=== PATIENT | female | born 1960 | race Caucasian/White ===

== ENCOUNTER 2019-12-27 04:22 | Inpatient (IN) | payer OTHER ==
[2019-12-25 13:18] VITALS: BMI 28.8
[2019-12-27] MEDS ORDERED: VANCOMYCIN 1,000 MG VIAL (RESTRICTED TO ID ONLY) ONE (07:21)
[2019-12-27] MEDS ORDERED: SODIUM CHLORIDE 0.9% P/F 10 ML VIAL IJ ONE (07:21)
[2019-12-27] MEDS ORDERED: ceFAZolin SODIUM 1 GM VIAL ONE ×3 (07:21→21:30)
[2019-12-27] MEDS ORDERED: TRANEXAMIC ACID 1000 MG/10 ML VIAL ONE ×2 (07:21→09:48)
[2019-12-27] MEDS ORDERED: MIDAZOLAM HCL 2 MG/2 ML SINGLE DOSE VIAL ONE ×2 (07:23)
[2019-12-27] MEDS ORDERED: ACETAMINOPHEN 1000 MG/100 ML VIAL (NON FORMULARY) IVPB ONE (07:28)
[2019-12-27] MEDS ORDERED: ONDANSETRON 4 MG/2 ML VIAL IVPUSH PRN ×2 (07:28→11:32)
[2019-12-27] MEDS ORDERED: oxyCODONE HCL 5 MG TABLET PO PRN (07:28)
[2019-12-27] MEDS ORDERED: traMADol HCL 50 MG TABLET PO PRN (07:28)
[2019-12-27] MEDS ORDERED: LIDOCAINE HCL/PF 1% SDV 5ML VIAL ONE (07:34)
[2019-12-27] MEDS ORDERED: ROPIVACAINE HCL 0.5% 30ML VIAL ONE (07:34)
[2019-12-27] MEDS ORDERED: EPHEDRINE SULFATE/0.9% NACL/PF 50 MG/10 ML SYRINGE NR ONE (09:10)
[2019-12-27] MEDS ORDERED: PROPOFOL 20 ML ONE ×2 (09:10)
[2019-12-27] MEDS ORDERED: ONDANSETRON 4 MG/2 ML VIAL ONE ×2 (09:59→15:45)
[2019-12-27] MEDS ORDERED: BENZOIN/ALOE VERA/STORAX/TOLU 58 ML BOTTLE ONE (10:24)
--- NOTE | 2019-12-27 11:22 | PN ---
Progress Note (short form) - Note Progress Note: 59F s/p RIGHT total hip replacement w/cable fixation of graciela-prosthetic calcar fracture POD #0. -Pain control: CANDY CUTTER MACHINE as per anesthesia team; NSAID's OK. -Ancef 2mg IV q6h post-op x 3 doses. -DVT PPx: -Chemical: ASA 81mg PO BID x 6 weeks. -Mechanical: VICKIE's, SCD's. -Incentive spirometry q15 min. -PT/OT/Rehab, OOB. -PWB RLE: 20lbs. -f/u TOV (8 hours max). -f/u AM labs. -f/u drain output. -Hip abduction pillow: straps loose, not tight. -RIGHT hip precautions. -Diet as tolerated. -Care per medical hospitalist team. -Discharge planning: home VS rehab; f/u [facility] [place] [facility] 7-10 days post-discharge; call for appointment . -Will follow. Dao Patel MD (Orthopaedic Surgery).
--- NOTE | 2019-12-27 11:25 | OP ---
Operative Note - Note: Operative Date: 12/27/19 Pre-Operative Diagnosis: Right hip DJD Operation: Right total hip replacement Findings: Intra-op calcar fracture fixed w/cable x 1 Implants: Gerson. Cup - Trident II-Triathlon, 52mm cluster. 1 x 25mm acetabular screw. Poly - 28mm, neutral. Stem - Accolade II, #4, 127 deg NSA, high offset. Head - 28mm diameter, +4mm length Biolox/Delta Ceramic Post-Operative Diagnosis: Same as Pre-op Surgeon: Dao Patel Publicity Director: Curtis Patel Anesthesiologist/SENIOR INFRASTRUCTURE ARCHITECT: Love Pang Anesthesia: Spinal Specimens Removed: Right femoral head Estimated Blood Loss (mls): 200 Drains & Tubes with Location: 1 x Deep HemoVac Fluid Volume Replaced (mls): 1,000 (Crystalloid) Operative Report Dictated: Yes
[2019-12-27] MEDS ORDERED: MAGNESIUM HYDROX 2400MG/30ML ORAL SUSPENSION 30 ML CUP PO PRN (11:32)
[2019-12-27] MEDS ORDERED: ALBUTEROL SO4 HFA INHALER IH PRN (11:32)
[2019-12-27] MEDS ORDERED: MAG HYDROX/AL HYDROX/SIMETH 30 ML UNIT-DOSE CUP PO PRN (11:32)
[2019-12-27] MEDS ORDERED: LACTATED RINGERS SOLUTION 1,000 ML IV SCH (11:45)
[2019-12-27] MEDS ORDERED: ACETAMINOPHEN INJECTION 100 ML IVPB ONE (11:52)
--- NOTE | 2019-12-27 13:14 | OP ---
DATE OF OPERATION: 12/27/2019 SURGEON: Dao Patel MD WELFARE CENTRE MANAGER: Curtis Patel MD PREOPERATIVE DIAGNOSIS: Osteoarthritis, right hip. POSTOPERATIVE DIAGNOSIS: Osteoarthritis, right hip. OPERATIVE PERFORMED: Right cementless total hip arthroplasty (Gerson). (33204) ANESTHESIA: Conscious sedation with spinal anesthesia. ANTIBIOTICS GIVEN: Ancef 2 g, 1 g vancomycin preop, 1 g Ancef at the time of seating of the femoral component. OPERATION DETAILS: Patient correctly identified, brought to the operating room. Right lower extremity was prepped, free draped in a routine manner with Betadine scrub solution, wiped off with alcohol, DuraPrep applied. Timeout was called. Imaging was available for intraoperative evaluation. With the hip and knee flexed at 45 degrees, incision was made centered over the greater trochanter. The dissection was taken through the skin and subcutaneous tissue to the fascia. Fascia opened, Charnley retractors were placed in the subfascial planes to provide excellent exposure of the hip abductor mechanism. The trochanteric ridge clearly identified. The incision into the gluteus medius, which was anterior biased direct lateral approach, enabled easy access to the femoral neck. The incision into the femoral neck was from the superolateral aspect of the acetabulum to the inferomedial aspect of the acetabulum. Radial incision was made into the neck, and the hip was flexed, externally rotated, and dislocated with no difficulty. Severe osteoarthritic changes noted to the femoral head as well as the acetabulum. The acetabulum was exposed with anterior, posterior, inferior retractor. The superior shard of muscle was held out of harm's way with 1 Charnley pin. The labrum was resected. The posterior capsule was left intact. Reaming was to size 52, and a size 52 titanium cup inserted. Because of the osteoporotic bone, I elected to seat 1 screw for additional fixation, albeit press-fit fixation was solid and excellent. The augmentation of the fixation with the screw gave me peace of mind that there will be no rotation of this cup. A 28-mm polyethylene liner inserted for the articulation. Once this had been completed, hip was flexed and externally rotated. The hip abductor was held out of harm's way with a sharp Hohmann. A box cut was made into the trochanteric area. A terry cloth cutter hand was inserted into the femoral canal and a powered lateralizer utilized to open up the lateral part of the greater trochanter for the stem. Broaching was to size 4 for an Accolade stem. The femoral broaching was so that the neck was about 3-5 degrees anteverted. This would to the cup which was seated at 10 degrees of anteversion and 40 degrees of inclination. Broaching to size 4, unfortunately because of the osteoporotic bone a small crack occurred on top of the calcar. This was exposed extensively to see where the end of the crack was. This measured about 2 cm. A cable was applied around the proximal end of the femur. This was a delicious cable and tightened appropriately. Sequential broaching was performed again on the right up to size 4. The time of the crack of the femur was when the broaching was at size 3. A size 4 Accolade stem applied. It was inserted. It was a high-offset 127-degree femoral neck, and a +4 ceramic head gave equal leg length on the table. Flexion, adduction, internal rotation, extension, external rotation were completely safe, and no subluxation noted. The wounds and tissues were then thoroughly lavaged with saline. The closure was as follows: Hip abductor mechanism with 1 No. 1 Vicryl, fascia 1 Vicryl, subcutaneous 1 and 2-0 Vicryl, skin 3-0 Monocryl, Steri-Strips. Drainage 1/8-inch Hemovac x1. A hip abduction pillow utilized. MD LEENA Beatty/[id number] MTDD
[2019-12-27] MEDS ORDERED: oxyCODONE HCL 5 MG TABLET ONE (13:39)
[2019-12-27] MEDS ORDERED: oxyCODONE HCL 5 MG TABLET PO ONE (13:42)
[2019-12-27] MEDS ORDERED: traMADol HCL 50 MG TABLET ONE (15:18)
[2019-12-27] MEDS ORDERED: HYDROmorphone HCL CARPU-JECT 2 MG/1 ML DISP.SYRIN IVPUSH ONE (15:30)
[2019-12-27] MEDS ORDERED: ceFAZolin SODIUM 1 GM VIAL IVPB ONE (15:44)
[2019-12-27] MEDS ORDERED: PROMETHAZINE HCL 25 MG/1 ML VIAL IVPB ONE (16:15)
[2019-12-27] MEDS ORDERED: PROMETHAZINE HCL 25 MG/1 ML VIAL ONE (16:16)
[2019-12-27] MEDS: CEFAZOLIN 1 GM in DEXTROSE 5%-WATER - 50 ML IVPB SCH ×2 (17:23→21:34)
[2019-12-27] MEDS: LACTATED RINGERS SOLUTION 1,000 ML IV SCH (17:24)
[2019-12-27] MEDS: oxyCODONE HCL 5 MG TABLET PO PRN (19:49)
[2019-12-27] MEDS: ACETAMINOPHEN 325 MG TABLET (FP) PO SCH ×2 (19:50→19:54)
[2019-12-27] MEDS ORDERED: DEXTROSE 5%-WATER - 50 ML IVPB ONE (21:30)
[2019-12-27] MEDS: ASPIRIN 325 MG TABLET PO SCH (21:34)
[2019-12-27] MEDS: SENNOSIDES/DOCUSATE COMBO (SENNA PLUS) TABLET (UD) PO SCH (21:35)
[2019-12-27] MEDS: oxyCODONE HCL 10 MG SUSTAINED ACTING TABLET PO SCH (21:36)
[2019-12-28] MEDS: oxyCODONE HCL 5 MG TABLET PO PRN ×4 (00:17→14:47)
[2019-12-28] MEDS: ACETAMINOPHEN 325 MG TABLET (FP) PO SCH ×5 (02:15→22:13)
[2019-12-28] MEDS ORDERED: ceFAZolin SODIUM 1 GM VIAL ONE (03:18)
[2019-12-28] MEDS ORDERED: DEXTROSE 5%-WATER - 50 ML IVPB ONE (03:18)
[2019-12-28] MEDS: CEFAZOLIN 1 GM in DEXTROSE 5%-WATER - 50 ML IVPB SCH (03:35)
[2019-12-28 08:18] LABS: HEMATOCRIT 33.2 % (32.4-45.2); HEMOGLOBIN 10.8 GM/dL (10.7-15.3); MCH 28.8 pg (25.7-33.7); MCHC 32.5 g/dl (32.0-36.0); MEAN CELL VOLUME 88.7 fl (80-96); MEAN PLT VOLUME 8.6 fl (7.5-11.1); PLATELET COUNT 241 K/MM3 (134-434); RBC 3.74 M/mm3 (3.60-5.2); RDW 13.9 % (11.6-15.6); WHITE BLOOD COUNT 10.1 K/mm3 (4.0-10.0)
[2019-12-28 08:42] LABS: CALCIUM 8.5 mg/dL (8.5-10.1); CREATININE 0.7 mg/dL (0.55-1.3); POTASSIUM 4.3 mmol/L (3.5-5.1)
--- NOTE | 2019-12-28 09:13 | HP ---
CHIEF COMPLAINT: s/p Total R Hip Replacement PCP: HISTORY OF PRESENT ILLNESS: This is a 59 year old female with PMH of arthritis, who was admitted for elective R hip replacement for arthritis of the hip. She states that she has had arthritis in hip joints B/L for several years, worse on the right. She has been managing pain with Tylenol and Meloxicam at home, the efficacy of which has been gradually declining, which is why total hip replacement was recommended. She is now POD#1 total hip replacement w/cable fixation of graciela-prosthetic calcar fracture POD #0, without complications. She had oatmeal for breakfast this morning, has passed gas, but has not had any BMs. Endorses some nausea yesterday, but no fevers, chills, vomiting, diarrhea, SOB, chest pain, AMS. States pain has been somewhat under control. 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 Smoking: denies Alcohol: denies Drugs: denies Allergies No Known Allergies Allergy (Verified 12/25/19 13:12) HOME MEDICATIONS: Home Medications Medication Instructions Recorded Acetaminophen [Tylenol Arthritis] 1 tab PO PRN PRN 12/12/19 Albuterol Sulfate Inhaler - 1 puff IH PRN PRN 12/12/19 [Ventolin Hfa Inhaler -] REVIEW OF SYSTEMS CONSTITUTIONAL: Absent: fever, chills, diaphoresis, generalized weakness, malaise, loss of appetite, weight change HEENT: Absent: rhinorrhea, nasal congestion, throat pain, throat swelling, difficulty swallowing, mouth swelling, ear pain, eye pain, visual changes CARDIOVASCULAR: Absent: chest pain, syncope, palpitations, irregular heart rate, lightheadedness, peripheral edema RESPIRATORY: Absent: cough, shortness of breath, dyspnea with exertion, orthopnea, wheezing, stridor, hemoptysis GASTROINTESTINAL: Absent: abdominal pain, abdominal distension, nausea, vomiting, diarrhea, constipation, melena, hematochezia GENITOURINARY: Absent: dysuria, frequency, urgency, hesitancy, hematuria, flank pain, genital pain MUSCULOSKELETAL: Absent: myalgia, arthralgia, joint swelling, back pain, neck pain SKIN: Absent: rash, itching, pallor HEMATOLOGIC/IMMUNOLOGIC: Absent: easy bleeding, easy bruising, lymphadenopathy, frequent infections ENDOCRINE: Absent: unexplained weight gain, unexplained weight loss, heat intolerance, cold intolerance NEUROLOGIC: Absent: headache, focal weakness or paresthesias, dizziness, unsteady gait, seizure, mental status changes, bladder or bowel incontinence PSYCHIATRIC: Absent: anxiety, depression, suicidal or homicidal ideation, hallucinations. PHYSICAL EXAMINATION Vital Signs - 24 hr 12/27/19 12/27/19 12/27/19 11:10 11:15 11:20 Temperature 97.6 F Pulse Rate 54 L 50 L 67 Respiratory 14 14 14 Rate Blood Pressure 106/64 118/69 115/67 O2 Sat by Pulse 95 100 100 Oximetry (%) 12/27/19 12/27/19 12/27/19 11:25 11:40 11:55 Temperature Pulse Rate 50 L 50 L 51 L Respiratory 13 12 11 Rate Blood Pressure 113/67 120/65 111/68 O2 Sat by Pulse 100 100 100 Oximetry (%) 12/27/19 12/27/19 12/27/19 12:10 12:25 12:40 Temperature Pulse Rate 52 L 49 L 52 L Respiratory 13 11 11 Rate Blood Pressure 109/59 L 111/61 112/63 O2 Sat by Pulse 100 100 100 Oximetry (%) 12/27/19 12/27/19 12/27/19 12:55 13:00 13:30 Temperature Pulse Rate 52 L 53 L 63 Respiratory 11 14 20 Rate Blood Pressure 111/59 L 111/62 107/67 O2 Sat by Pulse 100 100 100 Oximetry (%) 12/27/19 12/27/19 12/27/19 14:00 14:30 14:45 Temperature Pulse Rate 57 L 56 L 60 Respiratory 15 14 16 Rate Blood Pressure 107/67 106/62 105/62 O2 Sat by Pulse 100 100 100 Oximetry (%) 12/27/19 12/27/19 12/27/19 15:00 15:30 16:00 Temperature Pulse Rate 58 L 60 58 L Respiratory 16 16 16 Rate Blood Pressure 130/70 130/74 128/72 O2 Sat by Pulse 100 100 100 Oximetry (%) 12/27/19 12/27/19 12/27/19 16:30 16:45 17:31 Temperature 98.2 F 98 F Pulse Rate 58 L 64 60 Respiratory 16 16 18 Rate Blood Pressure 138/72 120/72 156/74 O2 Sat by Pulse 100 100 100 Oximetry (%) 12/27/19 12/27/19 12/27/19 19:45 21:00 23:12 Temperature Pulse Rate 66 Respiratory 20 Rate Blood Pressure 119/71 118/70 O2 Sat by Pulse 100 100 Oximetry (%) 12/28/19 12/28/19 02:47 06:00 Temperature 99.2 F 99.4 F Pulse Rate 67 63 Respiratory 18 18 Rate Blood Pressure 102/57 L 113/56 L O2 Sat by Pulse 98 99 Oximetry (%) GENERAL: Awake, alert, and fully oriented, in no acute distress. HEAD: Normal with no signs of trauma. EYES: Pupils equal, round and reactive to light, extraocular movements intact, sclera anicteric, conjunctiva clear. No lid lag. EARS, NOSE, THROAT: Ears normal, nares patent, oropharynx clear without exudates. Moist mucous membranes. NECK: Normal range of motion, supple without lymphadenopathy, JVD, or masses. LUNGS: Breath sounds equal, clear to auscultation bilaterally. No wheezes, and no crackles. No accessory muscle use. HEART: Regular rate and rhythm, normal S1 and S2 without murmur, rub or gallop. ABDOMEN: Soft, nontender, not distended, normoactive bowel sounds, no guarding, no rebound, no masses. No hepatomegaly or splenomegaly. MUSCULOSKELETAL: Normal range of motion at all joints. No bony deformities or tenderness. No CVA tenderness. UPPER EXTREMITIES: 2+ pulses, warm, well-perfused. No cyanosis. No clubbing. No peripheral edema. LOWER EXTREMITIES: Brace in place, drain with no output neurovascular system intact NEUROLOGICAL: Cranial nerves II-XII intact. Normal speech. PSYCHIATRIC: Cooperative. Good eye contact. Appropriate mood and affect. SKIN: Warm, dry, normal turgor, no rashes or lesions noted, normal capillary refill. Laboratory Results - last 24 hr 12/28/19 12/28/19 07:05 07:05 WBC 10.1 H RBC 3.74 Hgb 10.8 Hct 33.2 MCV 88.7 MCH 28.8 MCHC 32.5 RDW 13.9 Plt Count 241 MPV 8.6 Sodium 139 Potassium 4.3 Chloride 104 Carbon Dioxide 30 Anion Gap 6 L BUN 11.0 Creatinine 0.7 Est GFR (CKD-EPI)AfAm 109.91 Est GFR (CKD-EPI)NonAf 94.84 Random Glucose 117 H Calcium 8.5 ASSESSMENT/PLAN: 59F s/p RIGHT total hip replacement w/cable fixation of graciela-prosthetic calcar fracture POD #0. 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 - PT twice daily, PWB RLE: 20lbs. - F/U TOV (8 hours max). - F/Udrain output. - Hip abduction pillow: straps loose, not tight, RIGHT hip precautions. #FEN: - Currently receiving LR, if tolerating diet will D/C after this bag - Regular diet, as tolerated #Prophylaxis - Chemical: ASA 81mg PO BID x 6 weeks. - Mechanical: VICKIE's, SCD's. #Dispo - Monitor in M/S for now Visit type - Emergency Visit Emergency Visit: No - New Patient This patient is new to me today: No - Critical Care Critical Care patient: No ATTENDING PHYSICIAN STATEMENT I saw and evaluated the patient. I reviewed the resident's note and discussed the case with the resident. I agree with the resident's findings and plan as documented. SUBJECTIVE: OBJECTIVE: ASSESSMENT AND PLAN:
[2019-12-28] MEDS: SENNOSIDES/DOCUSATE COMBO (SENNA PLUS) TABLET (UD) PO SCH ×2 (10:46→22:14)
[2019-12-28] MEDS: PANTOPRAZOLE 40 MG TABLET PO SCH (10:46)
[2019-12-28] MEDS: oxyCODONE HCL 10 MG SUSTAINED ACTING TABLET PO SCH ×2 (10:46→22:12)
[2019-12-28] MEDS ORDERED: ASPIRIN 325 MG ENTERIC COATED TABLET (FP) PO SCH (10:49)
[2019-12-28] MEDS ORDERED: ASPIRIN COATED 81 MG TABLET.EC PO SCH (10:50)
[2019-12-28] MEDS ORDERED: HYDROmorphone HCl 2 MG/ML VIAL IVPB PRN (10:57)
--- NOTE | 2019-12-28 11:01 | PN ---
Progress Note, Physician Chief Complaint: s/p ANAI under spinal anesthesia History of Present Illness: post op day one, paravertebral block for post op pain control - Current Medication List Current Medications: Active Medications Acetaminophen (Tylenol -) 650 mg PO Q6H [facility] Stop: 12/30/19 07:29 Last Admin: 12/28/19 10:51 Dose: Not Given Documented by: Al Hydroxide/Mg Hydroxide (Mylanta Oral Suspension -) 30 ml PO Q4H PRN PRN Reason: DYSPEPSIA Albuterol Sulfate (Ventolin Hfa Inhaler -) 1 puff IH Q6H PRN PRN Reason: SHORTNESS OF BREATH Aspirin (Ecotrin -) 81 mg PO BID [facility] Fentanyl (Sublimaze Injection -) 25 mcg IVPUSH [id number] PRN PRN Reason: PAIN-PACU ORDER X 4 DOSES ONLY Last Admin: 12/27/19 12:47 Dose: 50 mcg Documented by: Fentanyl (Sublimaze Injection -) 50 mcg IVPUSH [id number] PRN PRN Reason: PAIN-PACU ORDER X 4 DOSES ONLY Last Admin: 12/27/19 14:30 Dose: 50 mcg Documented by: Hydromorphone HCl (Dilaudid Injection -) 2 mg IVPB Q4H PRN PRN Reason: PAIN LEVEL 6-10 Lactated Ringer's (Lactated Ringers Solution) 1,000 mls @ 75 mls/hr IV ASDIR [facility] Last Admin: 12/27/19 17:24 Dose: 75 mls/hr Documented by: Magnesium Hydroxide (Milk Of Magnesia -) 30 ml PO PRN PRN PRN Reason: CONSTIPATION Ondansetron HCl (Zofran Injection) 4 mg IVPUSH Q6H PRN PRN Reason: NAUSEA AND/OR VOMITING Oxycodone HCl (Roxicodone -) 5 mg PO Q3H PRN PRN Reason: PAIN LEVEL 4 - 6 Oxycodone HCl (Roxicodone -) 10 mg PO Q3H PRN PRN Reason: PAIN LEVEL 7 - 10 Last Admin: 12/28/19 08:24 Dose: 10 mg Documented by: Oxycodone HCl (Oxycontin -) 10 mg PO BID [facility] Stop: 12/30/19 07:29 Last Admin: 12/28/19 10:46 Dose: 10 mg Documented by: Pantoprazole Sodium (Protonix -) 40 mg PO DAILY [facility] Last Admin: 12/28/19 10:46 Dose: 40 mg Documented by: Senna/Docusate Sodium (Pericolace -) 2 tablet PO BID [facility] Last Admin: 12/28/19 10:46 Dose: 2 tablet Documented by: Tramadol HCl (Ultram -) 50 mg PO Q3H PRN PRN Reason: PAIN LEVEL 1 - 3 Last Admin: 12/27/19 23:05 Dose: 50 mg Documented by: - Objective Vital Signs: Vital Signs Temperature 99.4 F 12/28/19 06:00 Pulse Rate 63 12/28/19 06:00 Respiratory Rate 18 12/28/19 06:00 Blood Pressure 113/56 L 12/28/19 06:00 O2 Sat by Pulse Oximetry (%) 99 12/28/19 06:00 Constitutional: Yes: Well Nourished, Moderate Distress Cardiovascular: Yes: WNL Respiratory: Yes: WNL Gastrointestinal: Yes: WNL Labs: CBC, BMP 12/28/19 07:05 12/28/19 07:05 Assessment/Plan Patient complaining of pain and inadequate pain control despite getting all pain medication ordered. will add dilaudid 2mg IVPB Q4H prn for breakthrough pain. no adverse anesthetic complications, dept of anesthesiology will sign off care at this time, reconsult if pain control is an issue.
[2019-12-28] MEDS: ASPIRIN COATED 81 MG TABLET.EC PO SCH ×2 (11:06→22:14)
[2019-12-28] MEDS: ASPIRIN 325 MG TABLET PO SCH (11:09)
--- NOTE | 2019-12-28 11:11 | PN ---
Teaching Attending Note Name of Resident: Evaristo Taylor ATTENDING PHYSICIAN STATEMENT I saw and evaluated the patient. I reviewed the resident's note and discussed the case with the resident. I agree with the resident's findings and plan as documented. SUBJECTIVE: 59 year old female with known history of arthritis, who was admitted for electi ve R hip replacement. She is now POD#1 total hip replacement with cable fixation of graciela-prosthetic calcar fracture POD #0, without complications. She reports pain at the surgical site. She was able to pass gas. Her appetite is not yet back to normal but she was able to eat a bit of breakfast. OBJECTIVE: Gen: appears appropriate for stated age and not in acute distress HEENT: EOMI, no oral lesions, pupils reactive to light CVS: RRR chest: clear to auscultation, no rales, ronchi nor wheezing abd: soft, nontender, nondistended, +BS ext: no edema, feet are warm and dry. 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 POD#1 sp R hip replacement - cont incentive spirometer regularly - cont with standing and prn pain medications - repeat labs in am 2. BM prophylaxis- colace 3. DVT prophylaxis - ASA Bid x 6 weeks as per ortho
[2019-12-28] MEDS: LACTATED RINGERS SOLUTION 1,000 ML IV SCH (14:15)
--- NOTE | 2019-12-28 14:47 | PN ---
Progress Note (short form) - Note Progress Note: POD __1__, s/p ____RT THA____ Pt seen and examined. Doing well post op. Pain well controlled. Has been oob ambulating with PT. Passing flatus. Tolerating diet. Voiding without issue. Denies cp/sob, n/v/d. GEN: A&0x3, NAD CV: Lungs: CTA b/l ABD: soft, non-distended, non-tender. Right hip: hemovac in place with ____63ml serosanguinous drainage in reservoir. Surgical dressing c/d/i. Compartments soft, no calf tenderness or swelling noted b/l. TEDs/SCDS in place b/l. /5 dorsi/plantar flexion b/l, / EHl/FHL b/l, SILT b/l les. Assessment/Plan: _59___y/o F/M with history of __Rt hip__ OA now POD ___1__ s/p Rt ANAI. Pt doing well post-operatively. Afebrile, VSS. Pain controlled. -Pain control as ordered -DVT PPx: Chemical: ASA 81 mg po BID x 6 weeks, Mechanical: VICKIE's, SCD's -Incentive Spirometry -PT/OT/Rehab, OOB -WBAT RLE -Keep drain in place, monitor I&Os -f/u am labs -Home meds ordered as appropriate -Care per medical hospitalist team.
[2019-12-28 20:43] LABS: URINE APPEARANCE CLEAR; URINE BILIRUBIN NEGATIVE (NEGATIVE); URINE COLOR YELLOW; URINE GLUCOSE (UA) NEGATIVE (NEGATIVE); URINE KETONE NEGATIVE (NEGATIVE); URINE LEUK ESTERASE TRACE (NEGATIVE); URINE NITRITE NEGATIVE (NEGATIVE); URINE PROTEIN NEGATIVE (NEGATIVE); URINE UROBILINOGEN 0.2 mg/dL (0.2-1.0)
[2019-12-29] MEDS: ACETAMINOPHEN 325 MG TABLET (FP) PO SCH ×5 (02:53→19:26)
[2019-12-29 07:42] LABS: BASO % 0.2 % (0-2.0); EOS % 0.5 % (0-4.5); HEMATOCRIT 32.6 % (32.4-45.2); HEMOGLOBIN 10.5 GM/dL (10.7-15.3); MCH 28.8 pg (25.7-33.7); MCHC 32.4 g/dl (32.0-36.0); MEAN PLT VOLUME 8.7 fl (7.5-11.1); NEUT % 78.3 % (42.8-82.8); PLATELET COUNT 250 K/MM3 (134-434); RBC 3.66 M/mm3 (3.60-5.2); RDW 14.1 % (11.6-15.6); WHITE BLOOD COUNT 12.1 K/mm3 (4.0-10.0)
[2019-12-29 08:01] LABS: ALBUMIN 2.8 g/dl (3.4-5.0); BILIRUBIN,TOTAL 0.4 mg/dL (0.2-1); BLOOD UREA NITROGEN 9.2 mg/dL (7-18); CALCIUM 8.6 mg/dL (8.5-10.1); CREATININE 0.7 mg/dL (0.55-1.3); MAGNESIUM 2.3 mg/dL (1.8-2.4); PHOSPHOROUS 2.5 mg/dL (2.5-4.9); POTASSIUM 3.9 mmol/L (3.5-5.1); TOT PROT 5.8 g/dl (6.4-8.2)
--- NOTE | 2019-12-29 08:42 | PN ---
Progress Note (short form) - Note Progress Note: POD __2__, s/p ____RT THA____ Pt seen and examined. Doing well post op. Pain well controlled. Has been oob ambulating with PT. Passing flatus. Tolerating diet. Voiding without issue. Denies cp/sob, n/v/d. Pt was unable to walk with PT yesterday. Pt is adament about going home and no Rehab, emphasized pt needs to work hard with PT today. GEN: A&0x3, NAD Lungs: CTA b/l ABD: soft, non-distended, non-tender. Right hip: hemovac in place with ____30ml serosanguinous drainage in reservoir. Surgical dressing c/d/i. Compartments soft, no calf tenderness or swelling noted b/l. TEDs/SCDS in place b/l. 5/5 dorsi/plantar flexion b/l, 5/5 EHl/FHL b/l, SILT b/l les. Assessment/Plan: _59___y/o F with history of __Rt hip__ OA now POD ___2__ s/p Rt ANAI. Pt doing well post-operatively. Will plan for discharge home with PT, if able to walk with them either later afternoon or tomorrow am. Will plan to pull drain later today after PT. Afebrile, VSS. Pain controlled. -Pain control as ordered -DVT PPx: Chemical: ASA 81 mg po BID x 6 weeks, Mechanical: VICKIE's, SCD's -Incentive Spirometry -PT/OT/Rehab, OOB -WBAT RLE -Keep drain in place, monitor I&Os -f/u am labs -Home meds ordered as appropriate -Care per medical hospitalist team.
[2019-12-29] MEDS: PANTOPRAZOLE 40 MG TABLET PO SCH ×2 (08:54→09:55)
[2019-12-29] MEDS: oxyCODONE HCL 5 MG TABLET PO PRN ×4 (08:54→19:27)
[2019-12-29] MEDS ORDERED: PT OWN MED DRAWER 7, Y5N ONE (09:37)
[2019-12-29] MEDS: ASPIRIN COATED 81 MG TABLET.EC PO SCH ×2 (09:55→21:39)
[2019-12-29] MEDS: SENNOSIDES/DOCUSATE COMBO (SENNA PLUS) TABLET (UD) PO SCH ×2 (09:55→21:39)
--- NOTE | 2019-12-29 11:32 | PN ---
Teaching Attending Note Name of Resident: Sofia Montanez ATTENDING PHYSICIAN STATEMENT I saw and evaluated the patient. I reviewed the resident's note and discussed the case with the resident. I agree with the resident's findings and plan as documented. SUBJECTIVE: patient seen and examined, feeling improvement OBJECTIVE: Last Vital Signs Temp Pulse Resp BP Pulse Ox 98.8 F 76 18 128/67 98 12/29/19 05:00 12/29/19 05:00 12/29/19 05:00 12/29/19 05:00 12/29/19 05:00 Gen: AAOx3, not in acute distress HEENT: EOMI, no oral lesions, pupils reactive to light CVS: S1S2 normal, no murmurs, non tachy Lungs: clear to auscultation, no rales, ronchi nor wheezing abdoemn: soft, nontender, nondistended, +BS ext: no edema, feet are warm and dry. Surgical dressing at the right lateral proximal thigh, drain in place, no tenderness TMH TEACHER: no motor deficit CBCD WBC 12.1 K/mm3 (4.0-10.0) H 12/29/19 06:53 RBC 3.66 M/mm3 (3.60-5.2) 12/29/19 06:53 Hgb 10.5 GM/dL (10.7-15.3) L 12/29/19 06:53 Hct 32.6 % (32.4-45.2) 12/29/19 06:53 MCV 89.0 fl (80-96) 12/29/19 06:53 MCHC 32.4 g/dl (32.0-36.0) 12/29/19 06:53 RDW 14.1 % (11.6-15.6) 12/29/19 06:53 Plt Count 250 K/MM3 (134-434) 12/29/19 06:53 MPV 8.7 fl (7.5-11.1) 12/29/19 06:53 CMP Sodium 140 mmol/L (136-145) 12/29/19 06:53 Potassium 3.9 mmol/L (3.5-5.1) 12/29/19 06:53 Chloride 106 mmol/L (98-107) 12/29/19 06:53 Carbon Dioxide 26 mmol/L (21-32) 12/29/19 06:53 Anion Gap 9 MMOL/L (8-16) 12/29/19 06:53 BUN 9.2 mg/dL (7-18) 12/29/19 06:53 Creatinine 0.7 mg/dL (0.55-1.3) 12/29/19 06:53 Random Glucose 94 mg/dL (74-106) 12/29/19 06:53 Calcium 8.6 mg/dL (8.5-10.1) 12/29/19 06:53 Total Bilirubin 0.4 mg/dL (0.2-1) 12/29/19 06:53 AST 21 U/L (15-37) 12/29/19 06:53 ALT 17 U/L (13-61) 12/29/19 06:53 Alkaline Phosphatase 86 U/L (45-117) 12/29/19 06:53 Total Protein 5.8 g/dl (6.4-8.2) L 12/29/19 06:53 Albumin 2.8 g/dl (3.4-5.0) L 12/29/19 06:53 Active Medications Acetaminophen (Tylenol -) 650 mg PO Q6H [facility] Stop: 12/30/19 07:29 Last Admin: 12/29/19 06:31 Dose: 650 mg Documented by: Al Hydroxide/Mg Hydroxide (Mylanta Oral Suspension -) 30 ml PO Q4H PRN PRN Reason: DYSPEPSIA Albuterol Sulfate (Ventolin Hfa Inhaler -) 1 puff IH Q6H PRN PRN Reason: SHORTNESS OF BREATH Aspirin (Ecotrin -) 81 mg PO BID [facility] Last Admin: 12/29/19 09:55 Dose: 81 mg Documented by: Fentanyl (Sublimaze Injection -) 25 mcg IVPUSH [id number] PRN PRN Reason: PAIN-PACU ORDER X 4 DOSES ONLY Last Admin: 12/27/19 12:47 Dose: 50 mcg Documented by: Fentanyl (Sublimaze Injection -) 50 mcg IVPUSH [id number] PRN PRN Reason: PAIN-PACU ORDER X 4 DOSES ONLY Last Admin: 12/27/19 14:30 Dose: 50 mcg Documented by: Hydromorphone HCl (Dilaudid Vial -) 2 mg IVPB Q4H PRN PRN Reason: PAIN LEVEL 1-3 Magnesium Hydroxide (Milk Of Magnesia -) 30 ml PO PRN PRN PRN Reason: CONSTIPATION Ondansetron HCl (Zofran Injection) 4 mg IVPUSH Q6H PRN PRN Reason: NAUSEA AND/OR VOMITING Oxycodone HCl (Roxicodone -) 5 mg PO Q3H PRN PRN Reason: PAIN LEVEL 4 - 6 Oxycodone HCl (Roxicodone -) 10 mg PO Q3H PRN PRN Reason: PAIN LEVEL 7 - 10 Last Admin: 12/29/19 08:54 Dose: 10 mg Documented by: Oxycodone HCl (Oxycontin -) 10 mg PO BID [facility] Stop: 12/30/19 07:29 Last Admin: 12/28/19 22:12 Dose: 10 mg Documented by: Pantoprazole Sodium (Protonix -) 40 mg PO DAILY [facility] Last Admin: 12/29/19 09:55 Dose: Not Given Documented by: Senna/Docusate Sodium (Pericolace -) 2 tablet PO BID [facility] Last Admin: 12/29/19 09:55 Dose: 2 tablet Documented by: Tramadol HCl (Ultram -) 50 mg PO Q3H PRN PRN Reason: PAIN 1 - 3; IF DILAUDID NT WRK Last Admin: 12/27/19 23:05 Dose: 50 mg Documented by: ASSESSMENT AND PLAN: 59 year old female with known history of arthritis, s/p total Rt hip replacement # R hip replacement POD#2 - cont incentive spirometer - pain improving, mobility improving - afebrile, non tachy, WBC trended up - completed ABx, will monitor for now - PT daily - tolerating diet, good BS but no BM yet - DVT prophylaxis with ASA Bid x 6 weeks as per ortho - discharge planning is per ortho team.
[2019-12-29] MEDS: oxyCODONE HCL 10 MG SUSTAINED ACTING TABLET PO SCH ×2 (12:35→21:39)
--- NOTE | 2019-12-29 13:49 | PN ---
Progress Note (short form) - Note Progress Note: Surgery: Hemovac drain placed with tip intact. No evidence of bleeding/pressure dressing applied and secured with papertape.
--- NOTE | 2019-12-29 15:50 | DS ---
Physical Exam: SUBJECTIVE: Patient seen and examined. Patient reports feeling better this morning. No acute events overnight. OBJECTIVE: Vital Signs Temperature 98.6 F 12/29/19 15:18 Pulse Rate 81 12/29/19 15:18 Respiratory Rate 16 12/29/19 15:18 Blood Pressure 124/69 12/29/19 15:18 O2 Sat by Pulse Oximetry (%) 96 12/29/19 15:18 PHYSICAL EXAM GENERAL: Awake, alert, and fully oriented, in no acute distress. HEAD: Normal with no signs of trauma. NECK: Normal range of motion, supple LUNGS: Breath sounds equal, clear to auscultation bilaterally. HEART: Regular rate and rhythm, normal S1 and S2 ABDOMEN: Soft, nontender, not distended, normoactive bowel sounds MUSCULOSKELETAL: Normal range of motion at all joints. UPPER EXTREMITIES: 2+ pulses, warm, well-perfused. No cyanosis. No clubbing. No peripheral edema. LOWER EXTREMITIES: dressing on R lateral hip C/D/I, drain in place. able to move left lower leg and foot, difficulty with knee and hip flexion, limited by pain NEUROLOGICAL: Cranial nerves II-XII intact. Normal speech. PSYCHIATRIC: Cooperative. Good eye contact. Appropriate mood and affect. SKIN: Warm, dry, normal turgor, no rashes or lesions noted, normal capillary refill. LABS Laboratory Results - last 24 hr 12/28/19 12/29/19 12/29/19 19:55 06:53 06:53 WBC 12.1 H RBC 3.66 Hgb 10.5 L Hct 32.6 MCV 89.0 MCH 28.8 MCHC 32.4 RDW 14.1 Plt Count 250 MPV 8.7 Absolute Neuts (auto) 9.5 H Neutrophils % 78.3 Lymphocytes % 12.0 Monocytes % 9.0 Eosinophils % 0.5 Basophils % 0.2 Nucleated RBC % 0 Sodium 140 Potassium 3.9 Chloride 106 Carbon Dioxide 26 Anion Gap 9 BUN 9.2 Creatinine 0.7 Est GFR (CKD-EPI)AfAm 109.91 Est GFR (CKD-EPI)NonAf 94.84 Random Glucose 94 Calcium 8.6 Phosphorus 2.5 Magnesium 2.3 Total Bilirubin 0.4 AST 21 ALT 17 Alkaline Phosphatase 86 Total Protein 5.8 L Albumin 2.8 L Urine Color Yellow Urine Appearance Clear Urine pH 7.0 Ur Specific [place] 1.004 L Urine Protein Negative Urine Glucose (UA) Negative Urine Ketones Negative Urine Blood Negative Urine Nitrite Negative Urine Bilirubin Negative Urine Urobilinogen 0.2 Ur Leukocyte Esterase Trace HOSPITAL COURSE: Date of Admission:12/27/19 Date of Discharge: 12/29/19 Patient is a 59 year old female with known history of arthritis, came in to the hospital and underwent total Rt hip replacement. Patient tolerated the procedure well, physical therapy evaluation. Sub-acute rehab was advised, but patient wanted to go home and continue with home physical therapy. Patient will be discharged to continue home PT and to continue ASA 80mg bid for 6 weeks as per ortho surgeon. Minutes to complete discharge: 38 Discharge Summary Problems reviewed: Yes Reason For Visit: RIGHT HIP OSTEOARTHRITIS Condition: Stable - Instructions Diet, Activity, Other Instructions: Dr. Patel Discharge Instructions for Hip Replacement Post Operative Instructions Physical activity Physical Therapist will come to your home for the first 5 days. You will be set up with outpatient PT at your first post-operative visit. Use assistive devices for ambulation at all times. Weight bearing as tolerated on your surgical side. Wound care Leave your surgical dressing in place. Do not change the dressing until seen by your surgeon in the office. No baths or showers. Do not submerge your incision. Do not apply any ointments or lotions to your incision. Please call the office if your dressing is soiled/dirty or is falling off. Apply Graduated Compression Stockings (TEDS) to both lower extremities-remove daily for hygiene ONLY. Diet There are no dietary restrictions. Eat healthy, high-fiber foods. Drink 6 to 8 glasses of liquid each day. This will assist in keeping your bowels are regular. Pain management Any pain prescription medication ordered should be taken as prescribed for moderate to severe pain. Do not take additional Tylenol while taking Percocet. Posterior Hip Precautions: Do not cross the leg you had surgery on over your other leg. (Do not cross your legs.)Use an elevated toilet seat. Do not sit on low chairs or beds. Use purple pillow (abductor) when lying in bed. Take Aspirin 81 mg two times a day for a total of 6 weeks to prevent blood clots. Call Dr. Patel for any of the following: Severe pain not relieved by medication Fever of 101 or higher Excessive bleeding or drainage on dressing Inability to urinate If you experience chest pain or shortness of breath, please seek emergency care immediately. Please call the office at to confirm your post-op appointment for the week following surgery. Referrals: Dao Patel MD [Staff Physician] - Disposition: VNS/HOME HEALTH CARE - Home Medications Comprehensive Discharge Medication List: Ambulatory Orders Acetaminophen [Tylenol Arthritis] 1 tab PO PRN PRN 12/12/19 Albuterol Sulfate Inhaler - [Ventolin HFA Inhaler -] 1 puff IH PRN PRN 12/12/19 Aspirin Coated [Ecotrin -] 81 mg PO BID #84 tablet.ec 12/29/19 This patient is new to me today: Yes Date on this admission: 12/29/19 Emergency Visit: Yes ED Registration Date: 12/27/19 Care time: The patient presented to the Emergency Department on the above date and was hospitalized for further evaluation of their emergent condition. Critical Care patient: No - Discharge Referral Referred to [facility] Med P.C.: No ATTENDING PHYSICIAN STATEMENT I saw and evaluated the patient. I reviewed the resident's note and discussed the case with the resident. I agree with the resident's findings and plan as documented. SUBJECTIVE: OBJECTIVE: ASSESSMENT AND PLAN:
--- NOTE | 2019-12-29 17:08 | PATH ---
Surgical Pathology Report Patient Name: SHALONDA CARSON Med. Rec. #: [id number] /Age/Gender: 1960 (Age: 59) / F Account: [id number] Location: [address] [place] [address]/[facility] Taken: 12/27/2019 Received: 12/27/2019 Reported: 12/29/2019 Physicians: Dao Patel M.D. Specimen(s) Received RIGHT FEMORAL HEAD Clinical History Right hip osteoarthritis Final Diagnosis BONE, FEMORAL HEAD, RIGHT, TOTAL HIP REPLACEMENT: BONE WITH DEGENERATIVE JOINT DISEASE. Electronically Signed Norma Newsome M.D. Gross Description Received in formalin, labeled "right femoral head," is a 4.7 x 4.7 x 4.4 cm. femoral head with a 1.5 cm in length portion of femoral neck attached. The margin of resection is smooth. There is a 2.7 cm in greatest dimension area of eburnation present. The remaining articular cartilage is locally peeling away from the underlying bone. The underlying trabecular bone is yellow, and shows focal softening. A employment representative section is submitted in one cassette, following decalcification. /12[facility]28/2019 [facility]
[2019-12-30] MEDS: ACETAMINOPHEN 325 MG TABLET (FP) PO SCH (01:36)
[2019-12-30] MEDS: oxyCODONE HCL 5 MG TABLET PO PRN (01:58)
[2019-12-30 06:12] VITALS: BP 122/64; PULSE 82; TEMP 99.1
[2019-12-30 09:50] LABS: BASO % 0.4 % (0-2.0); HEMATOCRIT 31.7 % (32.4-45.2); HEMOGLOBIN 10.4 GM/dL (10.7-15.3); LYMPH % 10.4 % (8-40); MCH 29.1 pg (25.7-33.7); MCHC 32.7 g/dl (32.0-36.0); MEAN CELL VOLUME 88.8 fl (80-96); MEAN PLT VOLUME 9.2 fl (7.5-11.1); NEUT % 80.2 % (42.8-82.8); PLATELET COUNT 243 K/MM3 (134-434); RBC 3.57 M/mm3 (3.60-5.2); RDW 14.4 % (11.6-15.6); WHITE BLOOD COUNT 11.9 K/mm3 (4.0-10.0)
[2019-12-30] MEDS ORDERED: KETOROLAC TROMETHAMINE 30 MG/1 ML VIAL IVPUSH ONE (10:19)
--- NOTE | 2019-12-30 10:19 | PN ---
Progress Note (short form) - Note Progress Note: 59F s/p RIGHT total hip replacement w/cable fixation of graciela-prosthetic calcar fracture POD #2. Pain well controlled. No acute events overnight. Pt. denies overnight history of headaches, chest pain, shortness of breath, nausea, vomiting, chills, & sweats. (+) Voiding; (+) Flatus; (-) BM. Tolerating diet. Minimal post-op PT; walked in room with PT. All labs and vitals reviewed. PE: AAO x 3, NAD. R Hip: Dressing C/D/I. B/L SensoriMotor Exam: Intact, at baseline. 59F s/p RIGHT total hip replacement w/cable fixation of graciela-prosthetic calcar fracture POD #2. -Pain control: NSAID's, opiates as needed. -DVT PPx: -Chemical: ASA 81mg PO BID x 6 weeks. -Mechanical: VICKIE's, SCD's. -Incentive spirometry q15 min. -PT/OT/Rehab, OOB. -PWB RLE: 20lbs. -Hip abduction pillow: straps loose, not tight. -RIGHT hip precautions. -f/u AM labs. -Diet as tolerated. -Care per medical hospitalist team. -Discharge planning: home with services; f/u [facility] [place] [facility] 10-14 days; call for appointment . -Will follow. Dao Patel MD (Orthopaedic Surgery).
[2019-12-30] MEDS ORDERED: PT OWN MED DRAWER 7, Y5N ONE (10:20)
[2019-12-30 10:21] LABS: ALBUMIN 2.7 g/dl (3.4-5.0); BLOOD UREA NITROGEN 10.9 mg/dL (7-18); CALCIUM 8.7 mg/dL (8.5-10.1); MAGNESIUM 2.3 mg/dL (1.8-2.4); POTASSIUM 4.2 mmol/L (3.5-5.1)
[2019-12-30] MEDS: SENNOSIDES/DOCUSATE COMBO (SENNA PLUS) TABLET (UD) PO SCH (10:29)
[2019-12-30] MEDS: PANTOPRAZOLE 40 MG TABLET PO SCH (10:29)
[2019-12-30] MEDS: oxyCODONE HCL 10 MG SUSTAINED ACTING TABLET PO SCH (10:30)
[2019-12-30] MEDS: ASPIRIN COATED 81 MG TABLET.EC PO SCH (10:31)
[2019-12-30 10:36] LABS: BILIRUBIN,TOTAL 0.3 mg/dL (0.2-1); CREATININE 0.6 mg/dL (0.55-1.3); PHOSPHOROUS 3.1 mg/dL (2.5-4.9); TOT PROT 5.9 g/dl (6.4-8.2)
--- NOTE | 2019-12-30 12:08 | PN ---
Progress Note (short form) - Note Progress Note: 59F s/p RIGHT total hip replacement w/cable fixation of graciela-prosthetic calcar fracture POD #3. Pain well controlled. No acute events overnight. Pt. denies overnight history of headaches, chest pain, shortness of breath, nausea, vomiting, chills, & sweats. (+) Voiding; (+) Flatus; (-) BM. Tolerating diet. Minimal post-op PT; walked in room with PT. All labs and vitals reviewed. PE: AAO x 3, NAD. R Hip: Dressing C/D/I. B/L SensoriMotor Exam: Intact, at baseline. 59F s/p RIGHT total hip replacement w/cable fixation of graciela-prosthetic calcar fracture POD #3. -Pain control: NSAID's, opiates as needed. -DVT PPx: -Chemical: ASA 81mg PO BID x 6 weeks. -Mechanical: VICKIE's, SCD's. -Incentive spirometry q15 min. -PT/OT/Rehab, OOB. -PWB RLE: 20lbs. -Hip abduction pillow: straps loose, not tight. -RIGHT hip precautions. -f/u AM labs. -Diet as tolerated. -Care per medical hospitalist team. -Discharge planning: home today with with services; pain medication has been ordered to patient's home pharmacy; f/u [facility] [place] [facility] 10-14 days; call for appointment . -Will follow. Dao Patel MD (Orthopaedic Surgery).
[2019-12-30 12:12] LABS: EPI CELLS 36 /uL (0-25.1); HYALINE CASTS 6 /uL (0-3.1); PH,URINE 6.5 (5.0-8.0); URINE APPEARANCE CLEAR; URINE BACTERIA 45 /uL (0-1359); URINE BILIRUBIN NEGATIVE (NEGATIVE); URINE COLOR YELLOW; URINE GLUCOSE (UA) NEGATIVE (NEGATIVE); URINE KETONE 2+ (NEGATIVE); URINE LEUK ESTERASE 1+ (NEGATIVE); URINE NITRITE NEGATIVE (NEGATIVE); URINE PROTEIN 1+ (NEGATIVE); URINE RBC 94 /uL (0-23.9); URINE WBC 131 /uL (0-25.8)
--- NOTE | 2019-12-30 15:14 | PN ---
Physical Exam: SUBJECTIVE: Patient seen and examined, doing well, improving with Physical Therapy OBJECTIVE: Vital Signs Period Temp Pulse Resp BP Sys/[place] Pulse Ox Last 24 Hr 98.6 F-100.8 F 77-82 16-18 115-133/59-74 94-98 Gen: AAOx3, not in acute distress HEENT: EOMI, no oral lesions, pupils reactive to light CVS: S1S2 normal, no murmurs, non tachy Lungs: clear to auscultation, no rales, ronchi nor wheezing abdoemn: soft, nontender, nondistended, +BS ext: no edema, feet are warm and dry. Surgical dressing at the right lateral proximal thigh, drain in place, no tenderness EXTENSION EDUCATOR: no motor deficit Laboratory Results - last 24 hr 12/30/19 12/30/19 12/30/19 07:14 07:14 11:15 WBC 11.9 H RBC 3.57 L Hgb 10.4 L Hct 31.7 L MCV 88.8 MCH 29.1 MCHC 32.7 RDW 14.4 Plt Count 243 MPV 9.2 Absolute Neuts (auto) 9.6 H Neutrophils % 80.2 Lymphocytes % 10.4 Monocytes % 8.0 Eosinophils % 1.0 D Basophils % 0.4 Nucleated RBC % 0 Sodium 141 Potassium 4.2 Chloride 104 Carbon Dioxide 26 Anion Gap 11 BUN 10.9 Creatinine 0.6 Est GFR (CKD-EPI)AfAm 115.63 Est GFR (CKD-EPI)NonAf 99.77 Random Glucose 92 Calcium 8.7 Phosphorus 3.1 Magnesium 2.3 Total Bilirubin 0.3 AST 21 ALT 18 Alkaline Phosphatase 90 Total Protein 5.9 L Albumin 2.7 L Urine Color Yellow Urine Appearance Clear Urine pH 6.5 Ur Specific [place] 1.018 Urine Protein 1+ H Urine Glucose (UA) Negative Urine Ketones 2+ H Urine Blood Trace Urine Nitrite Negative Urine Bilirubin Negative Urine Urobilinogen 1.0 Ur Leukocyte Esterase 1+ H Urine WBC (Auto) 131 Urine RBC (Auto) 94 Urine Casts (Auto) 6 U Epithel Cells (Auto) 36 U Sm Round Cell (Auto) None seen Urine Bacteria (Auto) 45 Active Medications Generic Name Dose Route Start Last Admin Trade Name Freq PRN Reason Stop Dose Admin Al Hydroxide/Mg Hydroxide 30 ml 12/27/19 11:32 Mylanta Oral Suspension - PO Q4H PRN DYSPEPSIA Albuterol Sulfate 1 puff 12/27/19 11:32 Ventolin Hfa Inhaler - IH Q6H PRN SHORTNESS OF BREATH Aspirin 81 mg 12/28/19 11:00 12/30/19 10:31 Ecotrin - PO 81 mg BID CLARA Administration Fentanyl 25 mcg 12/27/19 07:28 12/27/19 12:47 Sublimaze Injection - IVPUSH 50 mcg [id number] PRN Administration PAIN-PACU ORDER X 4 DOSES ONLY Fentanyl 50 mcg 12/27/19 07:28 12/27/19 14:30 Sublimaze Injection - IVPUSH 50 mcg [id number] PRN Administration PAIN-PACU ORDER X 4 DOSES ONLY Hydromorphone HCl 2 mg 12/28/19 10:57 Dilaudid Vial - IVPB Q4H PRN PAIN LEVEL 1-3 Magnesium Hydroxide 30 ml 12/27/19 11:32 12/30/19 10:32 Milk Of Magnesia - PO 30 ml PRN PRN Administration CONSTIPATION Ondansetron HCl 4 mg 12/27/19 07:28 Zofran Injection IVPUSH Q6H PRN NAUSEA AND/OR VOMITING Oxycodone HCl 5 mg 12/27/19 07:28 12/30/19 12:27 Roxicodone - PO 5 mg Q3H PRN Administration PAIN LEVEL 4 - 6 Oxycodone HCl 10 mg 12/27/19 07:28 12/30/19 01:58 Roxicodone - PO 10 mg Q3H PRN Administration PAIN LEVEL 7 - 10 Pantoprazole Sodium 40 mg 12/28/19 10:00 12/30/19 10:29 Protonix - PO 40 mg DAILY CLARA Administration Senna/Docusate Sodium 2 tablet 12/27/19 22:00 12/30/19 10:29 Pericolace - PO 2 tablet BID CLARA Administration Tramadol HCl 50 mg 12/27/19 07:28 12/27/19 23:05 Ultram - PO 50 mg Q3H PRN Administration PAIN 1 - 3; IF DILAUDID NT WRK ASSESSMENT/PLAN: 59 year old female with known history of arthritis, s/p total Rt hip replacement # R hip replacement POD#3 - cont incentive spirometer - pain improving, mobility improving - afebrile, non tachy, WBC trending down - PT daily - tolerating diet - DVT prophylaxis with ASA Bid x 6 weeks as per ortho - discharge planning and PT as per ortho team. Visit type - Emergency Visit Emergency Visit: Yes ED Registration Date: 12/27/19 Care time: The patient presented to the Emergency Department on the above date and was hospitalized for further evaluation of their emergent condition. - New Patient This patient is new to me today: No - Critical Care Critical Care patient: No - Discharge Referral Referred to [facility] Med P.C.: No
== END 2019-12-30 15:06 | disposition home health service (06) | DRG 470 ==
LOC: J2C 04:22 → J6S 17:10
PROVIDERS: ADMIT Orthopaedic Surgery Orthopaedic Surgery of the Spine; ATTEND Student in an Organized Health Care Education/Training Program
PROC: 0SR90JA Replacement of Right Hip Joint with Synthetic Substitute, Uncemented, Open Approach (ICD-10-PCS; principal; 2019-12-27 09:18)
DX: M16.11 Unilateral primary osteoarthritis, right hip (principal)
CPT/HCPCS: 36415; 71045-TC-FY; 73502-TC-RT-FY; 80048; 80053; 81003; 83735; 84100; 85025; 85027; 87040; 88305-TC; 88311-TC; 94760; 97116-GP; 97163-GP; J0131